=== PATIENT | female | born 1980 | race African-American/Black ===

== ENCOUNTER 2024-11-30 10:26 | Emergency (ER) | payer OTHER ==
[2024-11-30] MEDS ORDERED: Ketorolac Tromethamine 30 MG (1 mL) VIAL ONE (11:17)
== END 2024-11-30 11:40 | disposition home or self-care (01) ==
LOC: CSHERS 10:26
DX: S93.401A Sprain of unspecified ligament of right ankle, initial encounter (principal); I10 Essential (primary) hypertension; Z87.891 Personal history of nicotine dependence; X50.1XXA Overexertion from prolonged static or awkward postures, initial encounter
CPT/HCPCS: 96372; 99283; J1885

== ENCOUNTER 2024-12-01 08:45 | Emergency (ER) | payer OTHER | END 2024-12-01 09:24 | disposition home or self-care (01) | LOC: CSHERS 08:45 | DX: S93.401A Sprain of unspecified ligament of right ankle, initial encounter (principal); I10 Essential (primary) hypertension; Z87.891 Personal history of nicotine dependence; X58.XXXA Exposure to other specified factors, initial encounter | CPT/HCPCS: 99282 ==